=== PATIENT | male | born 1960 | race Caucasian/White ===

== ENCOUNTER 2021-01-29 18:18 | Emergency (ER) | payer OTHER ==
[2021-01-29 18:25] VITALS: RESP 20
[2021-01-29] MEDS ORDERED: IBUPROFEN 600 MG TAB PO STA (18:51)
[2021-01-29] MEDS ORDERED: SODIUM CHLORIDE 0.9% 50 ML IVPB ONE (19:15)
[2021-01-29] MEDS ORDERED: CASIRIVIMAB (REGN10933) (EUA) 600 MG, IMDEVIMAB (REGN10987) (EUA) 600 MG in SODIUM CHLO... IVPB ONE (19:30)
[2021-01-29 19:52] VITALS: BP 157/73; PULSE 105; TEMP 100.3
--- NOTE | 2021-01-29 20:32 | ED ---
General Adult HPI - General Chief complaint: Upper Respiratory Infection Stated complaint: covid+ Time Seen by Provider: 01/29/21 18:30 Source: patient Mode of arrival: ambulatory Limitations: no limitations - History of Present Illness Initial comments: 60-year-old male presents emergency department with cough, fever. He states that his symptoms started on Thursday. He was tested for Covid and was positive. He attempted to call the mobile unit to get antibody infusion however they told him that he would not be able to receive until this weekend. The patient then called his primary care doctor who recommended that he come into the emergency department for infusion. He denies productive cough. No hemoptysis. No chest pain. Patient has history of mild intermittent asthma. No nausea, vomiting or diarrhea. He is previously vaccinated. No other alleviating, precipitating or modifying factors - Related Data Home Medications Medication Instructions Recorded Confirmed amLODIPine/VALSARTAN [Exforge 1 each PO DAILY 02/15/14 02/16/14 10-160 mg Tablet] Allergies Allergy/AdvReac Type Severity Reaction Status Date / Time No Known Allergies Allergy Verified 01/29/21 18:25 Review of Systems ROS Statement: Those systems with pertinent positive or pertinent negative responses have been documented in the HPI. ROS Other: All systems not noted in ROS Statement are negative. Past Medical History Past Medical History: Hypertension Additional Past Medical History / Comment(s): SINUS PROBLEMS History of Any Multi-Drug Resistant Organisms: None Reported Past Surgical History: Orthopedic Surgery Additional Past Surgical History / Comment(s): RT ROTATOR CUFF REPAIR. RT HIP ARTHROSCOPY Past Anesthesia/Blood Transfusion Reactions: No Reported Reaction Past Psychological History: No Psychological Hx Reported Smoking Status: Never smoker Past Alcohol Use History: Occasional Past Drug Use History: None Reported General Exam Limitations: no limitations General appearance: alert, in no apparent distress Head exam: Present: atraumatic, normocephalic, normal inspection Eye exam: Present: normal appearance, PERRL, EOMI. Absent: scleral icterus, conjunctival injection, periorbital swelling ENT exam: Present: normal exam, mucous membranes moist Neck exam: Present: normal inspection. Absent: tenderness, meningismus, lymphadenopathy Respiratory exam: Present: normal lung sounds bilaterally. Absent: respiratory distress, wheezes, rales, rhonchi, stridor Cardiovascular Exam: Present: normal rhythm, tachycardia, normal heart sounds. Absent: systolic murmur, diastolic murmur, rubs, gallop, clicks GI/Abdominal exam: Present: soft, normal bowel sounds. Absent: distended, tenderness, guarding, rebound, rigid Extremities exam: Present: normal inspection, full ROM, normal capillary refill. Absent: tenderness, pedal edema, joint swelling, calf tenderness Back exam: Present: normal inspection Neurological exam: Present: alert, oriented X3, CN II-XII intact Psychiatric exam: Present: normal affect, normal mood Skin exam: Present: warm, dry, intact, normal color. Absent: rash Course Vital Signs 01/29/21 01/29/21 18:21 19:51 Temperature 101.5 F H 100.3 F H Pulse Rate 127 H 105 H Respiratory 20 20 Rate Blood Pressure 149/90 157/73 O2 Sat by Pulse 96 95 Oximetry Medical Decision Making - Medical Decision Making Upon arrival patient is placed in room 31. A thorough history and physical exam was performed. Patient is given a dose of Motrin and does have improvement in his fever and heart rate. IV is established and the patient is given Regen. Patient will be discharged home at this time and is to follow-up with his primary care doctor in 2-4 days. Recommended that he by a pulse ox and return if his oxygen saturation is less than 90%. Additionally to return for any new or worsening symptoms. Patient agreed to this was discharged home in stable condition Disposition Clinical Impression: COVID-19 Disposition: HOME SELF-CARE Condition: Stable Instructions (If sedation given, give patient instructions): Coronavirus Disease 2019 (COVID-19) Additional Instructions: Please follow up with your primary care doctor in 2-4 days. Return to the emergency room for any worsening symptoms Is patient prescribed a controlled substance at d/c from ED?: No Referrals: Aldo Tran MD [Primary Care Provider] - 1-2 days Time of Disposition: 20:31
== END 2021-01-29 21:12 | disposition home or self-care (01) ==
LOC: EC 18:18
DX: U07.1 COVID-19 (principal); I10 Essential (primary) hypertension
CPT/HCPCS: 99283 ×2; 96365; 96361 ×2; M0243; Q0243